=== PATIENT | male | born 1980 | race Caucasian/White ===

== ENCOUNTER → 2017-10-30 | Outpatient (CLI) | payer BC ==
--- NOTE | 2017-10-30 13:45 | XR ---
EXAM TYPE: LUMBAR SPINE X RAY SERIES COMPARISON: NONE HISTORY: Back pain TECHNIQUE: 4 views are submitted. FINDINGS: Alignment is anatomic. The pedicles are intact. The transverse processes are intact. There is no s pondylolysis or spondylolisthesis. Hypertrophic and degenerative disc disease L4-5 and L5-S1. IMPRESSION: 1. Degenerative disc disease L4-5 and L5-S1 consider MRI follow-up.
--- NOTE | 2017-10-30 13:47 | XR ---
EXAMINATION TYPE: XR Hip Bilateral Complete DATE OF EXAM: 10/30/2017 COMPARISON: NONE HISTORY: Pain TECHNIQUE: 2 views of each hip submitted FINDINGS: There is no evidence of erosive change or acute fracture. IMPRESSION: 1. No evidence of acute fracture or dislocation. If symptoms persist consider MRI.
== END | disposition home or self-care (01) ==
LOC: RADXRMAIN 13:17
PROVIDERS: ATTEND Family Medicine
DX: M51.37 Other intervertebral disc degeneration, lumbosacral region (principal); M25.551 Pain in right hip; M25.552 Pain in left hip
CPT/HCPCS: 72110; 73521

== ENCOUNTER 2018-10-13 22:43 | Emergency (ER) | payer BC, OTHER ==
[2018-10-13 22:56] VITALS: BP 125/81; PULSE 97; RESP 20; TEMP 98.3
[2018-10-13] MEDS ORDERED: DIPH,PERTUS(ACELL)TETVAC-LF 0.5 ML VIAL IM ONE (23:12)
--- NOTE | 2018-10-13 23:34 | XR ---
EXAMINATION TYPE: XR finger RT DATE OF EXAM: 10/13/2018 COMPARISON: NONE HISTORY: Laceration TECHNIQUE: 3 views FINDINGS: There is laceration deformity of the soft tissues at the PIP joint of the index finger. I s ee no radiopaque foreign body. I see no fracture. There is no dislocation. IMPRESSION: Large laceration deformity.
[2018-10-14] MEDS ORDERED: CEPHALEXIN 500MG STARTER PACK 4 CAP BTL PO STA (00:42)
--- NOTE | 2018-10-14 00:45 | ED ---
General Adult HPI - General Chief complaint: Wound/Laceration Stated complaint: Lac Finger Time Seen by Provider: 10/13/18 22:58 Source: patient, RN notes reviewed Mode of arrival: ambulatory Limitations: no limitations - History of Present Illness Initial comments: 37-year-old male presents to the emergency department for a chief complaint of laceration that occurred approximately one hour prior to arrival. Patient was using a metal miner when he cut his finger. Patient denies any pain with movement of the finger. Patient states he stopped bleeding shortly afterwards and bleeding is controlled at this time. He is not up-to-date on tetanus. No other complaints at this time. Patient has no other complaints at this time including shortness of breath, chest pain, abdominal pain, nausea or vomiting, headache, or visual changes. - Related Data Previous Rx's Medication Instructions Recorded Cephalexin [Keflex] 500 mg PO Q6HR 3 Days #12 cap 10/14/18 Allergies Allergy/AdvReac Type Severity Reaction Status Date / Time No Known Allergies Allergy Verified 10/13/18 22:56 Review of Systems ROS Statement: Those systems with pertinent positive or pertinent negative responses have been documented in the HPI. ROS Other: All systems not noted in ROS Statement are negative. Past Medical History Past Medical History: No Reported History History of Any Multi-Drug Resistant Organisms: None Reported Past Surgical History: No Surgical Hx Reported Past Psychological History: No Psychological Hx Reported Smoking Status: Current every day smoker Past Alcohol Use History: Rare Past Drug Use History: None Reported General Exam Limitations: no limitations General appearance: alert, in no apparent distress Head exam: Present: atraumatic, normocephalic, normal inspection Eye exam: Present: normal appearance, PERRL, EOMI. Absent: scleral icterus, conjunctival injection, periorbital swelling ENT exam: Present: normal exam, mucous membranes moist Neck exam: Present: normal inspection, full ROM. Absent: tenderness, meningismus, lymphadenopathy Respiratory exam: Present: normal lung sounds bilaterally. Absent: respiratory distress, wheezes, rales, rhonchi, stridor Cardiovascular Exam: Present: regular rate, normal rhythm, normal heart sounds. Absent: systolic murmur, diastolic murmur, rubs, gallop, clicks Extremities exam: Present: full ROM (Full range of motion of the right second digit including the MCP, PIP, and DIP joints), normal capillary refill ( Capillary refill less than 2 seconds in the right second digit as well as all digits of the right hand), other (Patient does have a 2 cm laceration to the palmar aspect of the right second finger PIP joint. I do not see any foreign bodies. I do not see evidence for tendon injury. Deep structures appear unaffected) Neurological exam: Present: alert, oriented X3, CN II-XII intact Psychiatric exam: Present: normal affect, normal mood Course Vital Signs 10/13/18 22:53 Temperature 98.3 F Pulse Rate 97 Respiratory 20 Rate Blood Pressure 125/81 O2 Sat by Pulse 99 Oximetry Medical Decision Making - Medical Decision Making 37-year-old male presents for laceration to the right second digit. Full range of motion. No evidence for tendon injury. No evidence of deep structure injury. X-ray shows large laceration deformity. This was cleaned thoroughly with soap and water as well as saline pressure irrigation. Wound was then approximated with 4 simple interrupted sutures. I did offer to add another suturable patient refuses. Patient was given tetanus shot. Patient was also given 3 days of antibiotics to prevent any infection as this is due to his finger. Patient will follow-up with primary care in 1-2 days for wound recheck. He was educated to return here in 7-10 days to have sutures removed. He agrees to this. He will also monitor for signs of infection. Disposition Clinical Impression: Laceration Disposition: HOME SELF-CARE Condition: Good Instructions (If sedation given, give patient instructions): Care For Your Stitches (ED), Laceration (ED) Additional Instructions: Please take antibiotic as directed. Please monitor for signs of infection such as spreading or streaking redness. Return to the emergency department for any worsening symptoms. Otherwise follow-up with primary care in 1-2 days for wound recheck. Prescriptions: Cephalexin [Keflex] 500 mg PO Q6HR 3 Days #12 cap Is patient prescribed a controlled substance at d/c from ED?: No Referrals: Dennys Mayorga DO [Primary Care Provider] - 1-2 days Time of Disposition: 00:43
== END 2018-10-14 00:55 | disposition home or self-care (01) ==
LOC: EC 22:43
DX: S61.210A Laceration without foreign body of right index finger without damage to nail, initial encounter (principal); F17.200 Nicotine dependence, unspecified, uncomplicated; Z53.29 Procedure and treatment not carried out because of patient's decision for other reasons; Z23 Encounter for immunization; W31.89XA Contact with other specified machinery, initial encounter; Y93.89 Activity, other specified
CPT/HCPCS: 12001; 90471; 90715; 99283